=== PATIENT | female | born 1950 | race Caucasian/White ===

== ENCOUNTER 2019-04-23 06:47 | Day surgery (SDC) | payer BC ==
[~2019-04-23] VITALS: Ht 165.1 cm; Wt 81.6 kg
[~2019-04-23 06:47] MED LIST: ASPI-404 PO; BACL20TA PO; BETA10TA2 PO; GABA100C9 PO; HYDR-4296 PO; LANS30CA57 PO; OMEG100062 PO; ROSU10TA16 PO; VALS160T53 PO
[2019-04-23] MEDS ORDERED: IODIXANOL 320MG/ML 100ML BTL IV ONE ×2 (07:22→07:51)
[2019-04-23] MEDS ORDERED: LIDOCAINE 2%HCL (LOCAL ANESTH.) INJ 20ML MDV ONE (07:22)
[2019-04-23] MEDS ORDERED: fentaNYL CITRATE 100 MCG/2 ML VL ONE (07:51)
[2019-04-23] MEDS ORDERED: SODIUM CHL 0.9% 50 ML ONE (07:51)
[2019-04-23] MEDS ORDERED: MIDAZOLAM HCL 1MG/1ML-2 ML VIAL ONE ×2 (07:51→08:36)
[2019-04-23] MEDS ORDERED: ANGIOMAX 250 MG VIAL IV ONE (07:51)
[2019-04-23] MEDS ORDERED: VERAPAMIL 2.5MG/ML INJ 2ML VIAL IV ONE (07:52)
[2019-04-23] MEDS ORDERED: ADENOSINE 90 MG/30 ML INJ IV ONE (08:28)
[2019-04-23] MEDS ORDERED: ACETAMINOPHEN 500 MG TAB PO PRN (09:30)
[2019-04-23] MEDS ORDERED: ONDANSETRON HCL 4 MG/2 ML VIAL IV PRN (09:30)
[2019-04-23] MEDS ORDERED: HYDROcodone-ACET 5/325MG TAB PO PRN (09:30)
== END 2019-04-23 11:18 | disposition home or self-care (01) ==
LOC: CATH 06:47
PROVIDERS: ATTEND Internal Medicine
DX: I25.119 Atherosclerotic heart disease of native coronary artery with unspecified angina pectoris (principal); I10 Essential (primary) hypertension; I77.1 Stricture of artery; E78.5 Hyperlipidemia, unspecified; G47.30 Sleep apnea, unspecified; Z79.82 Long term (current) use of aspirin; Z79.899 Other long term (current) drug therapy; Z88.2 Allergy status to sulfonamides; Z88.8 Allergy status to other drugs, medicaments and biological substances; Z82.49 Family history of ischemic heart disease and other diseases of the circulatory system; Z87.891 Personal history of nicotine dependence
CPT/HCPCS: 92978; 93005; 93458; C1760; C1769; C1887; C1894; J0153; J0583; J1644; J2250; J3010; J7030; Q9967; 99152; 99153